=== PATIENT | female | born 1945 | race Caucasian/White ===

== ENCOUNTER 2018-10-23 08:50 | Observation (INO) | payer BC, MEDICARE, OTHER ==
[~2018-10-23] VITALS: Ht 157.5 cm; Wt 82.5 kg
--- OUTSIDE RECORDS SUMMARY | ~2018-10-23 | XMS | Clinical Summary ---
Demographics + + + | Address | [address] | | | [place] [address] | + + + | Home Phone | | + + + | Preferred Language | Unknown | + + + | Marital Status | | + + + | Adventism Affiliation | Unknown | + + + | Race | Unknown | + + + | Ethnic Group | Unknown | + + + Author + + + | Author | [facility] | | | and [place] | + + + | Organization | [facility] | | | and [place] | + + + | Address | Unknown | + + + | Phone | Unavailable | + + + Support + + +---------+ + | Name | Relationship | Address | Phone | + + +---------+ + | Chung Morelos | SAWYER | Unknown | | + + +---------+ + | Jaime Morelos | SAWYER | Unknown | | + + +---------+ + Care Team Providers + +------+ + | Care Rn Clinical Research Name | Role | Phone | + +------+ + | Stan Post DO | PP | | + +------+ + Allergies + + + + + + | Active Allergy | Reactions | Severity | Noted | Comments | | | | | Date | | + + + + + + | Aspirin | Other (See Comments) | Medium | 11/10/19 | Stomach problems | | | | | 18 | with anything higher | | | | | | than 81 mg | + + + + + + | Atorvastatin | Rash | Low | 11/09/19 | | | | | | 18 | | + + + + + + | Lovastatin | Other (See Comments) | Medium | 11/09/19 | Myalgias and | | | | | 18 | Myositis | + + + + + + | Pitavastatin | Other (See Comments) | Medium | 11/09/19 | Myalgias, Myositis | | | | | 18 | | + + + + + + | Simvastatin | Other (See Comments) | Medium | 11/09/19 | Myalgias and | | | | | 18 | Myositis | + + + + + + Medications + + + +---------+------+------+-------+ | Medication | Sig | Dispensed | Refills | Star | End | Statu | | | | | | t | Date | s | | | | | | Date | | | + + + +---------+------+------+-------+ | Procious-3 Fatty | | | 0 | 09/1 | | Activ | | Acids (FISH OIL) | | | | 2/20 | | e | | 1000 MG CAPS | | | | 12 | | | + + + +---------+------+------+-------+ | B Complex-C (SUPER | | | 0 | 09/1 | | Activ | | B COMPLEX) TABS | | | | 2/20 | | e | | | | | | 12 | | | + + + +---------+------+------+-------+ | aspirin (WILLIAM | Take 81 mg by mouth | | 0 | 09/1 | | Activ | | ASPIRIN EC LOW DOSE) | Daily. | | | 2/20 | | e | | 81 MG EC tablet | | | | 12 | | | + + + +---------+------+------+-------+ | Calcium 500 MG | | | 0 | 09/1 | | Activ | | TABS | | | | 2/20 | | e | | | | | | 12 | | | + + + +---------+------+------+-------+ | Coenzyme Q10 (Q-10 | Take 1 tablet by | | 0 | | | Activ | | CO-ENZYME PO) | mouth Daily. | | | | | e | + + + +---------+------+------+-------+ | magnesium oxide | Take 400 mg by mouth | | 0 | | | Activ | | (MAG-OX) 400 mg | Daily. | | | | | e | | tablet | | | | | | | + + + +---------+------+------+-------+ | ondansetron | Take 1 tablet by | 2 | 0 | 05/1 | | Activ | | (ZOFRAN) 4 mg tablet | mouth See Admin | tablet | | 12/13 | | e | | | Instructions. If | | | 18 | | | | | nausea with prep. | | | | | | | | Stop prep, take 1 | | | | | | | | tab by mouth,wait 30 | | | | | | | | min, restart prep | | | | | | | | may repeat | | | | | | + + + +---------+------+------+-------+ | ezetimibe (ZETIA) | Take 10 mg by mouth | | 0 | 05/0 | | Activ | | 10 mg tablet | nightly. | | | 01/12 | | e | | | | | | 18 | | | + + + +---------+------+------+-------+ | Bioflavonoid | Take 1 tablet by | | 0 | | | Activ | | Products (ADELE C | mouth Daily. | | | | | e | | PO) | | | | | | | + + + +---------+------+------+-------+ Active Problems + + + | Problem | Noted Date | + + + | Special screening for malignant neoplasms, colon | 11/09/2017 | + + + | HYPERCHOLESTEROLEMIA | | + + + | OSTEOPENIA | | + + + | SPINAL STENOSIS | | + + + | BACK PAIN, LUMBAR, WITH RADICULOPATHY | | + + + | ARTHROSCOPY, HX OF | | + + + Family History + +------+ + + | Relation | Name | Status | Comments | + +------+ + + | Brother | | Alive | | + +------+ + + | Father | | | cause unknown, possibly obesity | | | | (Age | | | | | 69) | | + +------+ + + | Mother | | Alive | | + +------+ + + | Sister | | | Liver disease, 7 years after liver | | | | (Age | transplant | | | | 52) | | + +------+ + + Social History + + + +--------+ + | Tobacco Use | Types | Packs/Day | Years | Date | | | | | Used | | + + + +--------+ + | Former Smoker | Cigarettes | 0.5 | 25 | Quit: 1994 | + + + +--------+ + + +---+---+---+ | Smokeless Tobacco: | | | | | Never Used | | | | + +---+---+---+ + + +---------+ + | Alcohol Use | Drinks/We | oz/Week | Comments | | | ek | | | + + +---------+ + | Yes | 3 | 1.8 | on the weekends | | | Glasses | | | | | of wine | | | + + +---------+ + + + + | Sex Assigned at | Date Recorded | | | | + + + | Not on file | | + + + + + + + | Job Start Date | Occupation | Industry | + + + + | Not on file | Not on file | Not on file | + + + + + + + + | Travel History | Travel Start | Travel End | + + + + + + | No recent travel history available. | + + Last Filed Vital Signs + + + + | Vital Sign | Reading | Time Taken | + + + + | Blood Pressure | 119/70 | 11/10/20171114 PDT | + + + + | Pulse | 56 | 11/10/20171114 PDT | + + + + | Temperature | 36.4 C (97.5 F) | 11/10/2017846 PDT | + + + + | Respiratory Rate | 15 | 11/10/20171114 PDT | + + + + | Oxygen Saturation | 100% | 11/10/20171114 PDT | + + + + | Inhaled Oxygen | - | - | | Concentration | | | + + + + | Weight | 83.6 kg (184 lb 4.9 | 11/10/2017846 PDT | | | oz) | | + + + + | Height | 157.5 cm (5' 2") | 11/10/2017846 PDT | + + + + | Body Mass Index | 33.71 | 11/10/2017 0847 PDT | + + + + Plan of Treatment + + + + + | Health Maintenance | Due Date | Last Done | Comments | + + + + + | Hepatitis C | | | | | Screening | 5 | | | + + + + + | Vaccine: | | | | | Dtap/Tdap/Td (1 - | 4 | | | | Tdap) | | | | + + + + + | Breast Cancer | | | | | Screening (Ages | 5 | | | | 50-74) | | | | + + + + + | Vaccine: Zoster (1 | | | | | of 2) | 5 | | | + + + + + | Vaccine: | | | | | Pneumococcal 65+ | 0 | | | | Low/Medium Risk (1 | | | | | of 2 - PCV13) | | | | + + + + + | Adult Annual | | | | | Wellness Visit | 5 | | | + + + + + | Vaccine: Influenza | | | | | (Season Ended) | 9 | | | + + + + + | Colorectal Cancer | | 11/10/2017, 11/10/2017 | | | Screening | 1 | | | | (Colonoscopy) | | | | + + + + + Results Not on filefrom Last 3 Months Insurance + +--------+ +--------+ +---------+--------+ | Payer | Benefi | Subscriber | Effect | Phone | Address | Type | | | t Plan | ID | mara | | | | | | / | | Dates | | | | | | Group | | | | | | + +--------+ +--------+ +---------+--------+ | MEDICARE | MEDICA | [id number] | 01/25/20 | [phone] | | Medica | | | RE | | 10-Pre | 5 | | re | | | PART A | | sent | | | | | | AND B | | | | | | + +--------+ +--------+ +---------+--------+ | | CHAMPV | [id number] | [phone] | | Indemn | | | A | | 002-Pr | 7 | | ity | | | | | esent | | | | + +--------+ +--------+ +---------+--------+ | BCBS | BCBS | [id number] | 06/26/19 | | | PPO | | | OOS | 5 | 17-Pre | | | | | | PPO | | sent | | | | + +--------+ +--------+ +---------+--------+ + +--------+ +--------+ + + | Guarantor Name | Accoun | Relation to | Date | Phone | Billing Address | | | t Type | Patient | of | | | | | | | | | | + +--------+ +--------+ + + | Teodoro Morelos | Person | Self [birth year] | [address] | | | al/Nate | | 1945 | [phone] | [place] [address] | | | moon | | | 9 (Home) | | | | | | | [phone] | | | | | | | 9 (Work) | | + +--------+ +--------+ + + Advance Directives Patient has advance care planning documents on file. For more information, please contact:[facility] [place] [address]
--- OUTSIDE RECORDS SUMMARY | ~2018-10-23 | XMS | Clinical Summary ---
Demographics + + + | Address | [address] | | | [place] [address] | + + + | Home Phone | | + + + | Preferred Language | Unknown | + + + | Marital Status | | + + + | Hindu Affiliation | Unknown | + + + | Race | Unknown | + + + | Ethnic Group | Unknown | + + + Author + + + | Author | [facility] | | | and [place] | + + + | Organization | [facility] | | | and [place] | [...] Team Providers + +------+ + | Care As400 Administrator Name | Role | Phone | + [...] | | + + + +---------+------+------+-------+ | [place]-3 Fatty | | | 0 | 09/1 [...] +--------+ +---------+--------+ | MEDICARE | MEDICA | [id number] | 01/25/20 | [phone] | | Medica | | | RE | | 10-Pre | 5 | | re | | | PART A | | sent | | | | | | AND B | | | | | | + +--------+ +--------+ +---------+--------+ | | CHAMPV | [id number] | | [phone] | | Indemn | | | A | | 002-Pr | 7 | | ity | | | | | esent | | | | + +--------+ +--------+ +---------+--------+ | BCBS | BCBS | [id number] | 06/26/19 | | | PPO | [...] 1945 | [phone] | [place] [address] | | | moon | | | 9 (Home) | | | | | | | [phone] | | | | | | | 9 (Work) | | + +--------+ +--------+ + + Advance Directives Patient has advance care planning documents on file. For more information, please contact:[facility] [place] [address]
[~2018-10-23 08:50] MED LIST: ADULT ASPIRIN R81 MG PO; CALCIUM CITRAT250 MG PO; CO Q-10100 MG PO; EZETIMIBE10 MG PO; FISH OIL 1,0001 EAC5 PO; MAGNESIUM400 M1 PO
--- NOTE | 2018-10-23 13:37 | NUR ---
10/23/18 1337 Sheets,[place] 1328 PT ARRIVED TO PACU ON 6L VIA MASK, RESP EVEN AND UNLABORED. SMALL AMOUNT OF SNORING NOTED. 1330 TONE CABINET ASSEMBLER WAKES PT TO TACTILE STIMULI AND DENIES PAIN AND NAUSEA. PT BACK TO SLEEP. 1334 O2 MASK REMOVED.
--- NOTE | 2018-10-23 15:15 | NUR ---
PT RECEIVED TO ROOM AT 1440, BEDSIDE REPORT RECEIVED FROM PATTERN STAMPER. PT DROWSY, AROUSABLE TO VOICE, ORIENTED. PT ON ROOM AIR, LUNG SOUNDS CLEAR, CONTINUOUS PULSE OX IN PLACE. PT DENIES PAIN. BOWEL TONES ACTIVE, DENIES NAUSEA, CLEAR LIQUID DIET. PT WITH MIDLINE INCISION, CD, LLQ WILLAM DRAIN WITH SANGUINOUS FLUID. HAMLIN CATH DRAINING YELLOW URINE. CMS INTACT, WITHOUT EDEMA, SCDS IN PLACE. CALL LIGHT WITHIN REACH.
--- NOTE | 2018-10-23 15:47 | NUR ---
PT RESTING IN BED. PT REPOSITIONED TO RIGHT SIDE. VSS. MIDLINE INCISION DRESSING CDI, WILLAM CONTINUES TO DRAIN SANGUINOUS FLUID. PT CONTINUES TO BE DROWSY, AROUSABLE TO VOICE. PT DENIES OTHER NEEDS AT THIS TIME.
--- NOTE | 2018-10-23 16:52 | NUR ---
PT RESTING IN BED. PT REPORT OF PAIN 11/02, DISCUSSED WITH DR. OKEEFE IBUPROFEN AND TORADOL, VERBAL ORDER FOR OK TO GIVE IBUPROFEN, GIVEN. TELEPHONE ORDER TO MORPHINE 2-4 MG IV Q30MIN PRN FOR PAIN. DISCUSSED WITH PT, PT APPREHENSIVE TO MAKE NARCOTICS THEY MAKE HER SICK TO HER STOMACH. VSS. MIDLINE INCISION CDI. PT PROVIDED JELLO, TOLERATED WELL. PT REPOSITIONED SELF ON LEFT SIDE. PT DENIES OTHER NEEDS AT THIS TIME.
--- NOTE | 2018-10-23 17:45 | NUR ---
VSS. PT ASSISTED TO WALK IN DAVIS, PT STATES PAIN BETTER WHEN OOB. WILLAM DRAIN EMPTIED OF 20 ML OF SANGUINOUS FLUID. MIDLINE DRESSING CDI. PT DENIES NAUSEA, TOLERATED JELLO AND WATER WELL. PT ASSISTED TO BATHROOM. OUTREACH LIAISON TO ASSIST PT BACK TO BED. PT DENIES OTHER NEEDS AT THIS TIME.
--- NOTE | 2018-10-23 18:30 | NUR ---
PT WITH LOW URINE OUTPUT, NOTIFIED, TELEPHONE ORDER TO INCREASE D5LR TO 125 ML/HR. WILL CONTINUE TO MONITOR.
--- NOTE | 2018-10-23 18:31 | NUR ---
PT ADIMITTED FOR SIGMOID COLECTOMY. PT ON ROOM AIR, LUNG SOUNDS CLEAR. PAIN WELL CONTROLLED WITH MOTRIN, TYLENOL AND TORADOL GIVEN IN PACU. BOWEL TONES ACTIVE, DENIES NAUSEA, TOLERATING CLEAR LIQUID DIET. PT SBA TO AMBULATE IN DAVIS. PT WITH MIDLINE INCISION, DRESSING CDI, WILLAM TO LLQ, SANGUINOUS FLUID. SCDS IN PLACE, CMS INTACT. HAMLIN CATH, LOW URINE OUTPUT, IV FLUIDS INCREASED TO 125 ML/HR.
--- NOTE | 2018-10-23 19:00 | NUR ---
SHIFT REPORT RECIEVED AT BEDSIDE. PATIENT APPEARED TO BE SLEEPING BUT WOKE EASILY TO VOICE. TOLERATING ROOM AIR. DENIES PAIN AT REST. NO NAUSEA. IV FLUIDS PER ORDER. PATIENT REQUESTING TO AMBULATE, FREDO RIDDLE IN ROOM TO ASSIST.
--- NOTE | 2018-10-23 19:42 | NUR ---
PATIENT AMBULATED WELL IN THE HALLWAY. PATIENT BACK TO BED WITH CLERICAL INVESTIGATOR ASSIST. ICE PACK APPLIED TO ABD. PRN TYLENOL PROVIDED FOR PAIN 09/02.
--- NOTE | 2018-10-23 20:05 | NUR ---
PATIENT RESTING IN BED, APPEARED TO BE SLEEPING. WOKE EASILY TO VOICE. REPORTS PAIN WELL CONTROLLED, ENJOYS THE ICE PACK. SCHEDULED MEDS PROVIDED. PATIENT DENIES FURTHER NEEDS AT THIS TIME. CALL LIGHT IN REACH.
--- NOTE | 2018-10-23 22:00 | NUR ---
PATIENT RESTING IN BED. REPORTS PAIN WELL CONTROLLED, 2/10. USING ICE PACKS 20MIN AT A TIME AND REPORTS INCREASED RELIEF. LUNGS ARE CLEAR. VS STABLE. NO NAUSEA. ABD MILDLY DISTENDED, TENDER, BOWEL SOUNDS ACTIVE. NOT PASSING GAS OF NOW. IV FLUIDS PER ORDER, URINE OUTPUT SLIGHTLY IMPROVED, 200ML FOR LAST 4 HOURS. PATIENT DRINKING LARGE AMOUNTS OF FLUIDS. MIDLINE SITE COVERED WITH MEPILEX AND OBSITE, CDI. WILLAM LLQ, MINIMAL OUTPUT NOT YET DRAINED. PATIENT DENIES FURTHER NEEDS. CALL LIGHT IN REACH.
--- NOTE | 2018-10-23 23:03 | NUR ---
PATIENT WOKE AND ALERTED NURSE TO HER PAIN "ACTING UP". REPORTS ABD PAIN 5/10. PRN MOTRIN PROVIDED PER REQUEST. ICE PACKS APPLIED. PATIENT DENIES FURTHER NEEDS. CALL LIGHT IN REACH.
--- NOTE | 2018-10-24 01:30 | NUR ---
PATIENT VS DONE, WNL. URINE OUTPUT HAS IMPROVED. PATIENT REPORTS PAIN 3/10, PRN TYLENOL PROVIDED PER REQUEST. FRESH ICE PACKS APPLIED. PATIENT DENIES FURTHER NEEDS. DRESS CDI. NO NAUSEA. WILLAM EMPTIED FOR 10MLS.
--- NOTE | 2018-10-24 05:45 | NUR ---
PATIENT PROVIDED WITH PRN MOTRIN THIS AM. PAIN WELL CONTROLLED. PATIENT UP TO AMBULATE LARGE LAP IN HALLWAY. STEADY ON HER FEET. PATIENT RETURNED TO RECLINER TO WATCH TV. ICE WATER AND JUICE PROVIDED.
--- NOTE | 2018-10-24 06:30 | NUR ---
PATIENT SLEPT WELL. VS STABLE. PAIN WELL CONTROLLED WITH PRN TYLENOL AND MOTRIN. TOLERATING CLEAR LIQUIDS, NO NAUSEA. ABD MILDLY DISTENDED AND TENDER. BOWEL SOUNDS ACTIVE. URINE OUTPUT QS, HAMLIN IN PLACE. IV FLUIDS PER ORDER. SCDS. SBA. PATIENT AMBULATED IN HALLWAY X2 THIS SHIFT. WILLAM HAD 18ML OUT THIS SHIFT.
--- NOTE | 2018-10-24 06:34 | NUR ---
PT CALLED NEEDED HELP. FOUND PT IN THE BATHROOM, THOUGHT SHE HAD JUST GAS, BUT WAS INCONT OF VERY SMALL LIQUID STOOL. ASSISTED IN CLEANING HER UP, BACK TO BED. FRESH ICE PACKS AND SPLINTING SUPPORT FOR INCISION SITE. NO NAUSEA, STATED SHE HAD JUST HAD SOMETHING FOR PAIN, AND ONCE SHE IS DONE MOVING, SHE SAID PAIN WILL DECREASE. CALL LIGHT WITHIN REACH. NO OTHER NEEDS AT THIS TIME.
--- NOTE | 2018-10-24 07:23 | NUR ---
BEDSIDE HANDOFF REPORT RECEIVED FROM SUPERINTENDENT RADIO COMMUNICATIONS RN. PT RESTING IN BED. PT DENIES NEEDS AT THIS TIME.
--- NOTE | 2018-10-24 08:20 | NUR ---
PT WITH GOOD URINE OUTPUT, HAMLIN IN PLACE, NO ORDER FOR HAMLIN. DR. OKEEFE CALLED, ORDER TO DECREASE FLUIDS TO 85 ML/HR, LEAVE HAMLIN IN PLACE UNTIL ORDER TO REMOVE, RBOV.
--- NOTE | 2018-10-24 08:30 | NUR ---
PT RESTING IN BED. PT RATING PAIN TOLERABLE, 4/10 AT THIS TIME. PT ON ROOM AIR, LUNG SOUNDS CLEAR, DENIES SOB. PT WITH MIDLINE INCISION, CDI, WILLAM WITH MINIMAL SEROSANGUINOUS FLUID. BOWEL TONES ACTIVE, TOLERATING CLEAR LIQUID, DENIES NAUSEA. PT WIHTOUE EDEMA, CMS INTACT, SCDS IN PLACE. IV FLUIDS DECREASED TO 85 ML/HR. HAMLIN DRAININGE YELLOW URINE, QS. PT ASSITED TO CHAIR. PT VERY MOTIVATED, WANTING TO WLAK THROUGHOUT DAY. DISCUSSED PLAN OF CARE FOR THE DAY.
--- NOTE | 2018-10-24 09:25 | NUR ---
MED REC COMPLETE
--- NOTE | 2018-10-24 11:32 | NUR ---
PT SITTING IN CHAIR. PT RATING PAIN 2-3/10, STATES TOLERABLE. PT GIVEN 650 MG TYLENOL PO. PT ASSSITED TO BATHROOM, DAVID CORREIA BM. PT DENIES OTHER NEEDS AT THIS TIME.
--- NOTE | 2018-10-24 12:09 | OR ---
[facility] [address], [place] [address] Signed DATE OF OPERATION: 10/23/2018 SURGEON: Kemar Okeefe MD PREOPERATIVE DIAGNOSES: 1. Chronic recurrent sigmoid diverticulitis. 2. Obesity. 3. History of hysterectomy. POSTOPERATIVE DIAGNOSES: 1. Chronic recurrent sigmoid diverticulitis. 2. Cystic abnormality of remnant of right adnexa. 3. Advanced visceral obesity PROCEDURES PERFORMED: 1. Exploration of abdomen through pelvic laparotomy with sigmoid colectomy and side-to-end coloproctostomy, prolonged, complicated, and difficult. 2. Mobilization of splenic flexure. 3. Excision of cystic lesion of right adnexal remnant including portion of ovary and right salpinx. ANESTHESIA: General endotracheal, Erma Anderson CRNA, and preoperative TAP block (ultrasound guided). INDICATION: A 73-year-old white woman is a patient of Dr. Seo, who has had chronic recurrent bouts of sigmoid diverticulitis. She was last seen by me 14 years ago in 2004. She has since undergone colonoscopy in [place] [address] Holcomb, which showed no mass or neoplasm, but did confirm diverticular changes. In April of 2018, she had a very serious episode of left lower abdominal pain requiring antibiotics. She notes that certain foods do seem to cause problems for her. Currently she is rather symptom-free. She has had multiple episodes of clinical diverticulitis for which antibiotic therapy has been reasonably beneficial. Given her chronic recurrent symptoms, she has been referred for consideration of colectomy. Additionally, she has history of hysterectomy for benign disease and is postmenopausal. 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 She understands the risk of sigmoid resection including but not limited to bleeding, infection, ureteral injury, failure to cure her recurrent symptoms, and other unforeseen complications. She understands and she wishes to proceed. Electronically Signed By: KEMAR OKEEFE MD 10/24/18 1209 PATIENT NAME: SELINA LINTON OPERATIVE REPORT DATE OF : 45 REPORT #: [id number] PHYSICIAN: KEMAR OKEEFE MD PCP: GONZALEZ SEO MD REPORT IS CONFIDENTIAL AND NOT TO BE RELEASED WITHOUT AUTHORIZATION [facility] [address], [place] [address] Signed FINDINGS: The patient has baseline abdominal obesity. She had impressive fat in the mesentery of the sigmoid and a tortuous sigmoid with a dense inflammatory process within that mesentery, presumably related to diverticular changes. She had no sign of acute diverticulitis, only chronic changes. The rectum itself was normal. Bowel prep was excellent. A tension-free side-to-end coloproctostomy was performed after mobilization of splenic flexure. Additionally noted was a remnant of cystic change in the right adnexa associated with the remnant of the fallopian tube and small portion of ovary. This was excised as well. It did not have a malignant appearance. There was surgical absence of the gallbladder. The small bowel was normal. There were no other findings of concern. DESCRIPTION OF PROCEDURE: The patient was brought to the operating room, given a general endotracheal anesthetic. Prior to operating room intervention, she underwent a TAP block by the secretary of police for postoperative and intraoperative pain management. A Hinkle catheter was placed after general endotracheal anesthesia was induced. She had undergone a full bowel prep including oral antibiotics and IV antibiotics. The abdomen was clipped and prepared with a chlorhexidine solution and draped sterilely. Despite her abdominal obesity, minimization of her incision was deemed appropriate. An incision was made below the umbilicus extending to the symphysis pubis. She had thick abdominal wall pannus. The abdomen was entered without problem. A very thick omentum was noted. There was no sign of ascites or carcinomatosis. Palpation within the abdomen showed no sign of small bowel abnormality. The colon was obscured from view by an impressively large amount of sigmoid mesenteric fat. Actual course of the colon was not readily identified initially. A Bookwalter retractor was affixed to the table for good retraction of the abdominal wall. The omentum was placed in the upper abdomen and the white line of Toldt identified and incised with electrocautery. Using blunt dissection, the descending colon was identified, a few small diverticula were noted in the descending colon. Palpated within this amorphous central lower abdominal and pelvic fat plane was a dense cicatrix of chronic inflammation. With various manipulations, further dissection was undertaken this time to the right pelvis. It appeared that the sigmoid was extended to the right lower abdomen. In attempts of mobilizing the fatty mesentery of the sigmoid, prior suture material was encountered from prior hysterectomy. Ultimately found also was a remnant of ovary and minimal atretic salpinx and ovary, and a cystic abnormality. This was dissected free and ultimately excised and passed for pathology. This allowed for more freeing of the tortuous sigmoid near the right pelvis. Further dissection anteriorly was undertaken, retraction against the bladder undertaken, Electronically Signed By: KEMAR OKEEFE MD 10/24/18 1209 PATIENT NAME: SELINA LINTON OPERATIVE REPORT DATE OF : 45 REPORT #: [id number] PHYSICIAN: KEMAR OKEEFE MD PCP: GONZALEZ SEO MD REPORT IS CONFIDENTIAL AND NOT TO BE RELEASED WITHOUT AUTHORIZATION [facility] [address] [facility] [place], [place] [address] Signed and ultimately the low pelvis could be better identified. The fat that was associated with the sigmoid mesentery was impressive, more than I have ever seen, really. The dense phlegmonous change considered in the midportion of the sigmoid was likely a manifestation of recurrent sigmoid diverticulitis. Further dissection was undertaken on the left side, mobilizing the sigmoid mesentery to the midline. Mobilization of the left colon was undertaken incising the white line of Toldt and using blunt dissection carefully to separate the mesentery from the retroperitoneum. Ultimately, an area of transection of the distal descending colon was identified. A window was created between the thickened mesentery of the sigmoid and the descending colon and a Sachin drain looped around this area. Sequential division of the sigmoid mesentery with electrocautery was undertaken and serial application of hemostats to the mesenteric fatty tissue undertaken. Ligation of the vascular pedicles was undertaken with 0 silk ties doubly applied on the proximal side of the vascular arcades. A 50 mm ALEXX stapling device was used to transect the colon for further dissection. Further mobility of the very thickened sigmoid and rectal mesentery was undertaken with electrocautery rotating the distal sigmoid and proximal rectum anteriorly. Circumferential application of electrocautery allowed for identification of the rectal wall. The rectum itself was surprisingly narrow given her body habitus. Once completely isolated, it was then secured with a right angle bronchus clamp and then resected. Specimen included the dense phlegmonous mass in the mesentery as well as all of the sigmoid and some of the proximal rectum. The pelvis and abdomen were isolated with moistened laparotomy packs. The specimen was opened on the back table, inspected, and found to have diverticular changes, no sign of neoplasm. Plans were then made for a side-to-end coloproctostomy. The remaining left colon did generally reach to the rectal remnant, but further mobilization of the splenic flexur was deemed advisable to provide a completely tension free anastomosis. This was accomplished with blunt electrocautery dissection ultimately allowing for the colon to lie without tension to the proposed site of anastomosis in the rectum. A side-to-end coloproctostomy was then undertaken in a two-layer technique with interrupted 3-0 silk suture. Good patency to the anastomosis and lack of tension of the anastomosis was noted. It appeared to be watertight. Through a left lower quadrant stab incision, a 7 mm flat Tony drain was placed after removal of isolating laparotomy Electronically Signed By: KEMAR OKEEFE MD 10/24/18 1209 PATIENT NAME: SELINA LINTON OPERATIVE REPORT DATE OF : 45 REPORT #: [id number] PHYSICIAN: KEMAR OKEEFE MD PCP: GONZALEZ SEO MD REPORT IS CONFIDENTIAL AND NOT TO BE RELEASED WITHOUT AUTHORIZATION [address] [address] Signed packs and change of gloves for all personnel scrubbed. The drain was secured to the skin with nylon suture and manipulated into the pelvis. Attention was turned toward closure. The midline fascia was reapproximated with running bidirectional #1 PDS suture. Subcutaneous tissue irrigated and skin closed with running subcuticular 3-0 Vicryl. Steri-Strips were applied as was a Mepilex silver sponge dressing and an OpSite. The patient was ultimately extubated and transferred to recovery in good condition and suffered no complication. Sponge, needle, and instrument counts reported as correct x3. The procedure was prolonged, complicated, and difficult lasting at least three times longer than usual mostly due to body habitus and impressive abdominal fat. MD SCOTT Beltrán/MODL /[id number] cc: Gonzalez Seo MD Copies: GONZALEZ SEO MD ~ Electronically Signed By: KEMAR OKEEFE MD 10/24/18 1209 PATIENT NAME: SELINA LINTON OPERATIVE REPORT DATE OF : 45 REPORT #: [id number] PHYSICIAN: KEMAR OKEEFE MD PCP: GONZALEZ SEO MD REPORT IS CONFIDENTIAL AND NOT TO BE RELEASED WITHOUT AUTHORIZATION
--- NOTE | 2018-10-24 12:27 | NUR ---
PT SITTING IN CHAIR, WRAPPED UP IN BLANKET. SHE IS ALERT, ORIENTED AND SEEMS TO BE DOING WELL. PT STATED SHE HAS NO PAIN, AND HOPES TO BE DC'D TOMORROW. HAD PLEASANT VISIT, VISITOR CAME IN RM. EXTENDED A BLESSINMG, WILL FOLLOW NEEDED
--- NOTE | 2018-10-24 12:53 | NUR ---
PT ASSSITED TO WALK IN [place], COMPLETED 2 LAPS AROUND NURSING FLOOR. PT DENIES NAUSEA, BOWEL TONES ACTIVE, ADVANCED TO FULL LIQUID DIET, ORDERED A MILK SHAKE. PT ON ROOM AIR. NO ACUTE CHANGES. PT ASSIEDT BACK TO BED, SCDS IN PLACE. CALL LIGHT WITHIN REACH. PT REQUESTING TO NAP.
--- NOTE | 2018-10-24 14:04 | NUR ---
PT RESTIGN IN BED. PT RATING PAIN 1/10, GIVEN PRN MOTRIN, DISCUSSED ANTI-INFLAMMATORY USE OF MOTRIN. PT HAD SMALL BM. PT DENIESOTHER NEEDS. PLAN FOR ANOTHER WALK THIS AFTERNOON.
--- NOTE | 2018-10-24 14:46 | NUR ---
CHECKED BACKED WITH PT, SHE IS ALERT, ORIENTED AND PAIN IS 0. PT SEEMED PLEASED I CHECKED BACK BY, EXPLAINED TO ME HER SURGERY IN HER TERMS AND WAS ABLE TO POKE FUN AT HERSELF.PT HAD ME PRAY WITH HER, WILL FOLLOW NEEDED
--- NOTE | 2018-10-24 16:55 | NUR ---
PT RESTING IN BED. PT STATES PAIN TOLERABLE. PT EATING FULL LIQUID DIET. PT DENIES NEEDS AT THIS TIME.
--- NOTE | 2018-10-24 18:12 | NUR ---
PT ON ROOM AIR, LUNG SOUNDS CLEAR. IV FLUIDS DECREASED TO 85 ML/HR. PAIN WELL CONTROLLED WITH ALTERNATING MOTRIN AND TYLENOL. PT ADVANCED TO FULL LIQUID DIET, TOLERATING WELL, BOWEL TONES ACTIVE, SEVERAL LOOSE BM TODAY. PT WITH WILLAM WADDELL, 18ML OF SEROSANGUINOUS FLUID FOR SHIFT. PT UP WITH SBA/INDEPENDENT IN ROOM. HAMLIN CATH DRAINING QS, ORDER TO DC HAMLIN IN AM.
--- NOTE | 2018-10-24 18:31 | NUR ---
PT RETURNED TO BED FROM BATHROOM, HAD SMALL LOOSE BM. VSS. HAMLIN CATH EMPTIED. WILLAM EMPTIED FOR 18ML SEROSANGUINOUS FLUID. PT STATES PAIN TOLERABLE AT THIS TIME, RATING 2/10. PT TOELRATED FULL LIQUID DINNER. PT DENIES OTHER NEEDS AT THIS TIME.
--- NOTE | 2018-10-24 21:03 | NUR ---
COOP WITH ASSESSMENT. ALERT AND ORIENTED, IN BED WATCHING TV. ABD MIDLINE INCISION WITH MEPILEX AnD IOSITE IN PLACE, HEA, HAD SEVERAL BMS THIS AM. WILLAM WITH SS DRAINAGE 5CC DRAINED, PATENT. F/C PATENT, DRAINING CLEAR URINE. NO N/V. IVF INFUSING W/O PROBLEMS. SCDS OFF AT HER REQUEST
--- NOTE | 2018-10-24 22:39 | NUR ---
RESTING, NO DISTRESS, NO C/O PAIN
--- NOTE | 2018-10-25 00:24 | NUR ---
resting, no distress, no c/o pain, ivf infusing, f/c patent
--- NOTE | 2018-10-25 01:31 | NUR ---
medicated with tylenol 650mg po 4/10 abd pain.
--- NOTE | 2018-10-25 05:59 | NUR ---
CURRENTLY AWAKE, STANDING EDGE OF BED, WALKING INROOM. NO C/O PAIN. ABD INCISION W MEPELIX/OPSITE DRESSING IN PLACE, WILLAM W MINIMUM OF SS DRAINAGE. F/C DCD. TIP INTACT. TOLERATING FLUIDS WELL, CALL LIGHT AT HANDS REACH
--- NOTE | 2018-10-25 07:00 | NUR ---
BEDSIDE HANDOFF REPORT RECEIVDE FROM FILLER BLOCK INSERTER REMOVER RN. PT RESTING IN BED. PT REPORT OF BLOOD TINGINGED STOOL AND BLOOD WITH WIPING, STOOL ASSESSED, LOOSE STOOL PINKISH ORANGE. PT INSTRUCTED TO NOTIFY RN IF BLOOD CONTINUES. PT DENIES OTHER NEEDS AT THIS TIME.
--- NOTE | 2018-10-25 07:30 | NUR ---
PT CALLED BECAUSE SHE WENT TO THE BATHROOM AND NEEDED TO BE BLADDER SCANNED. TRIED TO SCAN AND COULDNT DUE TO HER DRESSING. TRIED AT MULTIPLE ANGLES. PATIENT BACK IN BED AND CALL LIGHT IN REACH.
--- NOTE | 2018-10-25 07:50 | NUR ---
PATIENT RESTING IN BED. PATIENT GOES TO WALK IN THE DAVIS. PATIENT WALKS ARROUND THE NURSING STATION 3 LAPS. ONE PERSON ASSISTING. PATIENT BACKS TO CHAIR. LINENS CHANGED. HANDS AND FACE CLEANED. WARM BLANKET PROVIDED. CALL LIGHT WITHIN REACH. NO OTHER NEEDS AT THIS TIME
--- NOTE | 2018-10-25 09:40 | NUR ---
PT RESTINGI N BED. PT STATES PAIN TOLERABLE AT THIS TIME, GIVEN 600 MG MORTIN. PT TOLERATING FULL LIQUID DIET, BOWEL TONES HYPERACTIVE, RECTUM ASSESSED FROM SIGNS OF BLEEDING OR IRRITATION, SKIN INTACT WITHOUT REDNESS. PT ON ROOM AIR, LUNG SOUNDS CLEAR. PT SBA TO BATHROOM, VOIDING QS WITHOUT DIFFICULTY. PT WITHOUT EDEMA, CMS INTACT. MIDLINE INCISION WITH SHADOWING TO LOWER DRESSING, WILLAM DRAIN IN PLACE TO LLQ WITH SEROSANGUINOUS FLUID. PT WALKING IN DAVIS, REPORT OF WALKING 4 LAPS WITHNURSE AIDE THIS AM, PT REQUEST TO WALK AGAIN THIS MORNING. DISCUSSED PLAN OF CARE FOR THE DAY. PT DENIES OTHER NEEDS AT THIS TIME.
--- NOTE | 2018-10-25 09:47 | NUR ---
PATIENT RESTING IN BED. VITAL SIGNS AND I&O DONE. ICE WATER GIVEN. CALL LIGHT WITHIN REACH. NO OTHER NEEDS AT THIS TIME
--- NOTE | 2018-10-25 11:19 | NUR ---
PATIENT IN BED. PATIENT GOES TO USE BATHROOM. PATIENT WALKS AROUND NURSING STATION 4 LAPS. ONE PERSON ASSISTING. PATIENT BACKS TO BED. CALL LIGHT WITHIN RECH. NO OTHER NEEDS AT THIS TIME
--- NOTE | 2018-10-25 11:32 | NUR ---
DR. OKEEFE NOTIFIED OF BLOOD TINGED STOOL THIS AM, NO NEW ORDERS, WILL CONTINUE TO MONITOR. TELEPHONE ORDER TO ADVANCE TO REGULAR DIET. PT ASSITED TO ORDER LUNCH. PT DENIES OTHER NEEDS AT THIS TIME.
--- NOTE | 2018-10-25 13:01 | NUR ---
PT HAD BEEN RESTING, VISITORS HAD DROPPED BY PT HAD HOPED TO DC TODAY, BUT STATED SHE HAS A FEELING IT WILL BE TOMORROW. SHE THANKED ME FOR COMING BY, EXTENDED A BLESSING. WILL FOLLOW NEEDED
--- NOTE | 2018-10-25 13:26 | NUR ---
Pt ambulated in the jacobsen with a SBA, she was steady on her feet and walked 3 laps. Pt helped back to bed and SCD's were repaced. Call carpenter within reach and she is now visiting with her family.
--- NOTE | 2018-10-25 13:54 | NUR ---
PATIENT RESTING IN BED. IN ROOM. VITAL SIGNS AND I&O DONE. CALL LIGHT WITHIN REACH. NO OTHER NEEDS AT THIS TIME
--- NOTE | 2018-10-25 15:54 | NUR ---
PT RESTING IN BED. PT STATES PAIN TOLERABLE. IV FLUIDS DISCONTINUED PER VERBAL ORDER. PT INSTRUCTED SHE MAY AMBULATE INDEPENDENTLY, EDUCATED ON FALL PREVENTION. WILLAM DRAIN EMPTIED FRO 10 ML OF SEROSANGUINOUS FLUID. LUNG SOUNDS CLEAR, PT ON ROOM AIR. BOWEL TONES ACTIVE, DENIES NAUSEA, TOLERATING REGULAR DIET. MIDLINE INCISION CDI. PT ASKING ABOUT DISCHAREG TIME TOMORROW, DISCUSSED WITH PT. PT DENIES OTHER NEEDS. PT WALKING IN DAVIS.
--- NOTE | 2018-10-25 17:36 | NUR ---
PATIENT RESTING IN BED. VITAL SIGNS AND I&O DONE. CALL LIGHT WITHIN REACH. NO OTHER NEEDS AT THIS TIME
--- NOTE | 2018-10-25 19:11 | NUR ---
RECIEVED REPORT FROM DAY SHIFT RN. PATIENT LAYING AWAKE IN BED WATCHING TV. PATIENT REPORTS PAIN IS "VERY LOW" A "1/10", PATIENT DENIES WANTING PRN PAIN MEDICATION AT THIS TIME. CALL LIGHT WITHIN REACH. WHITE BOARD UPDATED.
--- NOTE | 2018-10-25 19:46 | NUR ---
PT IS AMBULATING IN THE HALLS AT THIS TIME INDEPENDENTLY.
--- NOTE | 2018-10-25 20:40 | NUR ---
ASSESSMENT COMPLETE, REFER TO ASSESSMENT. MEDICATIONS ADMINISTERED PER ORDER. IV ASSESSED, PATIENT REPORTS PAIN AT IV SITE, IV SITE INFILTRATED, UNABLE TO ADMINISTER SCHEDULED IV PEPCID AT THIS TIME. DRESSING ON ABD IS CDI, NO NEW DRAINAGE NOTED, SLIGHT DRY SHADOWING NOTED TO LOWER DRESSING SITE. PATIENT REPORTS "2/10" PAIN IN ABD, PRN PAIN MEDICATION ADMINISTERED PER ORDER. PATIENT AMBULATED IN HALLWAY INDEPENDENTLY BEFORE ASSESSMENT. SANGUINOUS DRAINAGE NOTED IN WILLAM DRAIN. PATIENT DENIES HAVING CHEST PAIN, SHORTNESS OF BREATH, OR DIFFICULTY BREATHING. ABD ASSESSED, ACTIVE BOWEL TONES PRESENT. PATIENT DENIES NUMBNESS AND TINGING IN EXTREMITIES. CALL LIGHT WITHIN REACH. NO MORE NEEDS AT THIS TIME.
--- NOTE | 2018-10-25 21:00 | NUR ---
NOTIFIED DR. OKEEFE OF PATIENT REPORTING DISCOMFORT AT IV SITE. DR. OKEEFE STATED OK TO TAKE IV OUT AND TO LEAVE OUT. DR. OKEEFE ALSO STATED TO CHANGE "IV PEPCID 20 MG" TO "PO PEPCID 20 MG". VERIFIED ORDERS VIA READ BACK METHOD.
--- NOTE | 2018-10-25 21:38 | NUR ---
ROUNDED ON PATIENT LAYING AWAKE IN BED WATCHING TV. DRESSING ON ABD AND AROUND WILLAM DRAIN REMOVED PER ORDER. SMALL AMOUNT OF SEROSANGUANOUS DRAINAGE NOTED AROUND WILLAM SITE AND SMALL AMOUNT OF DRY RED DRAINAGE NOTED ALONG MIDLINE INCISION SITE. NEW DRESSING PLACED AROUND WILLAM DRAIN, USING DRAIN SPONGE AND FOAM TAPE. WILLAM DRAIN EMPTIED, DRAINING SEROSANGUANOUS DRAINAGE. MEDICATION ADMINISTERED PER ORDER. IV REMOVED PER DR. OKEEFE ORDER, CATHETER INTACT, PATIENT TOLERATED WELL, GUAZE AND COBAN IN PLACE. CALL LIGHT WITHIN REACH. NO MORE NEEDS AT THIS TIME.
--- NOTE | 2018-10-25 21:40 | NUR ---
vitals and I&Os were complete. patient requested juice and used the restroom while i was gone. Call light within reach and BST was nearby.
--- NOTE | 2018-10-25 22:44 | NUR ---
rounded on patient resting in bed with eyes closed laying on right side, respiratory rate is even and unlabored. no sign of tensing or grimacing. call light within reach.
--- NOTE | 2018-10-26 01:18 | NUR ---
ROUNDED ON PATIENT RESTING IN BED WITH EYES CLOSED, RESPIRATORY RATE IS EVEN AND UNLABORED. CALL LIGHT WITHIN REACH.
--- NOTE | 2018-10-26 04:08 | NUR ---
ROUNDED ON PATIENT RESTING IN BED WITH EYES CLOSED, RESPIRATORY RATE IS EVEN AND UNLABORED. NO SIGNS OF TENSING OR GRIMACING. CALL LIGHT WITHIN REACH.
--- NOTE | 2018-10-26 04:46 | NUR ---
PT SLEPT WELL THROUGHOUT THE NIGHT. IV REMOVED DUE TO INFILTRATION, OK TO LEAVE IV OUT PER DR. OKEEFE ORDER. DRESSING ON ABD REMOVED PER ORDER, SMALL-MODERATE AMOUNT OF DRY DRAINAGE NOTED ON STERISTRIPS OF MIDLINE INCISION. DRESSING PLACED AROUND WILLAM DRAIN WITH DRAIN SPONGE AND FOAM TAPE DUE TO SMALL AMOUNT OF SEROSANGUINOUS DRAINAGE NOTED AROUND WILLAM INSERTION SITE. WILLAM DRAIN DRAINING SEROSANGUINOUS DRAINAGE. INCISION SITE SHOWES NO SIGN OF REDDNESS OR IRRITATION. PT WALKED SEVERAL LAPS IN HALLWAY AT BEGINNING OF SHIFT. INDEPENDENT IN ROOM. ON ROOM AIR. PRN PAIN MEDICATION X1. ACTIVE BOWEL TONES PRESENT.
--- NOTE | 2018-10-26 06:05 | NUR ---
ASSESSMENT COMPLETE, REFER TO ASSESSMENT. PATIENT DENIES PAIN, SHORTNESS OF BREATH OR DIFFCULTY BREATHING. PATIENT DENIES ABD TENDERNESS, ACTIVE BT NOTED, PATIENT REPORTS PASSING FLATUS. SCANT AMOUNT OF SANGUINOUS DRAINAGE NOTED ON MIDLINE INCISION WITH STERI-STRIPS INTACT. DRESSING ON WILLAM DRAINAGE REMOVED A PORTION OF DRESSING HAD LIFTED UP, SMALL AMOUNT OF SEROSANGUINOUS DRAINAGE NOTED AROUND WILLAM INSERTION SITE, NEW DRESSING PLACED WITH DRAIN SPONGE AND FOAM TAPE. PATIENT DENIES NUMBNESS AND TINGLING IN EXTREMITIES. CALL LIGHT WITHIN REACH. NO MORE NEEDS AT THIS TIME.
--- NOTE | 2018-10-26 07:30 | NUR ---
PATIENT REPORT RECEIVED FROM DANIAL DARNELL, PATIENT HAS BEEN UP AMBULATING INDEPENDENTLY IN THE HALLWAY, SHE HAS A MIDLINE ABDOMINAL INCISION THAT IS INTACT WITH STERI STRIPS. PATIENT DENIES ANY QUESTIONS OR CONCERNS CURRENTLY.
--- NOTE | 2018-10-26 09:11 | NUR ---
PATIENT REQUESTING TYLENOL PO NOW FOR MILD PAIN 1/10 IN HER ABDOMEN DUE TO AMBULATION. MIDLINE INCISION IS STILL INTACT WITH STERI STRIPS OLD DRAINAGE NOTED. WILLAM HAS SERO SANG DRAINAGE PRESENT.
[2018-10-26] MEDS ORDERED: OFIRMEV1000 MG/10 IV (09:43)
[2018-10-26] MEDS ORDERED: IBUPROFEN600 MG PO (09:43)
[2018-10-26] MEDS ORDERED: TYLENOL325 MG PO (09:50)
--- NOTE | 2018-10-26 10:13 | NUR ---
DOCTOR MALDONADO IN TO SEE THE PATIENT, PATIENT GIVEN D/C INSTRUCTIONS QUESTIONS ANSWERED.
--- NOTE | 2018-10-28 14:06 | DS ---
[facility] [address], [place] [address] Signed ADMISSION DATE: 10/23/2018 DISCHARGE DATE: 10/26/2018 REASON FOR ADMISSION: This 73-year-old white woman is a patient of Dr. Seo, who has had chronic recurrent bouts of sigmoid diverticulitis. She had undergone colonoscopy in [place] [address] Douglas Holcomb, which showed no mass or neoplasm, but did confirm diverticular changes. In April of 2018, she had a very serious episode of left lower abdominal pain requiring antibiotics consistent with acute diverticulitis. She has chronic recurrent diverticulitis episodes and is admitted at this time to undergo sigmoid resection for intractability of her diverticular problem. PERTINENT PHYSICAL EXAM: GENERAL: This is an obese white woman with normal heart rate. CHEST: Clear. ABDOMEN: Quite obese. EXTREMITIES: Without clubbing, cyanosis, or edema. HOSPITAL COURSE: On October 23, 2018, she underwent sigmoid resection through a pelvic laparotomy. A side-to-end coloproctostomy was undertaken. She had impressive mesenteric fat and a dense chronic phlegmon of the sigmoid mesentery. Mobilization of splenic flexure was undertaken as well. Additionally noted was a cystic lesion of the right adnexal remnant, which was excised as well. A tap block (ultrasound-guided) was performed preoperatively and an ERAS approach was undertaken in hopes of avoiding opiates and expediting her recovery. Postoperatively, she was maintained with IV Toradol, IV Tylenol, and though opiate intravenously administered was available, was never required. She was began on clear liquids the night of operation, early ambulation, and progressed quite rapidly. Bowel function returned on postoperative day 1, and by postoperative day 3, she has tolerated regular diet, had normal bowel movements, minimal incisional pain, and has taken no opiates during the course of her hospitalization. She is discharged home in good condition. Review of her pathology report confirms diverticular change of the sigmoid and a dense inflammatory phlegmon of the sigmoid mesentery. There was no evidence of malignancy. The ovarian remnant, salpinx, and so forth showed no sign of malignancy either. FOLLOWUP PLAN: Electronically Signed By: KEMAR OKEEFE MD 10/28/18 1406 PATIENT NAME: SELINA LINTON DISCHARGE SUMMARY DATE OF : 45 REPORT #: [id number] PHYSICIAN: KEMAR OKEEFE MD PCP: GONZALEZ SEO MD REPORT IS CONFIDENTIAL AND NOT TO BE RELEASED WITHOUT AUTHORIZATION [facility] [address], [place] [address] Signed She is to return to see me in approximately a month. She is to lift no more than 20 pounds for at least 4 weeks. She is instructed to ambulate on a daily basis. DISCHARGE MEDICATIONS: Will include Motrin 600 mg p.o. q.6 hours p.r.n. needed for pain, #30, refill one; Tylenol 650 mg p.o. q.6 hours p.r.n. pain. She will resume her usual medication of magnesium oxide 400 mg p.o. daily; calcium citrate tablets, 1 tablet p.o. b.i.d.; aspirin 81 mg p.o. daily; CoQ10 400 mg p.o. daily; and [place]-3 fish oil 1 tablet p.o. daily. DISCHARGE DIAGNOSES: 1. Chronic recurrent acute diverticulitis, status post sigmoid resection with coloproctostomy. 2. Incidental finding of cystic abnormality of right adnexa cyst, status post excision. Final pathology is benign. 3. Obesity. MD SCOTT Beltrán/MODL /[id number] cc: MD Douglas Espinoza MD Copies: GONZALEZ SEO MD, JAMES MD ~ Electronically Signed By: KEMAR OKEEFE MD 10/28/18 1406 PATIENT NAME: SELINA LINTON DISCHARGE SUMMARY DATE OF : 45 REPORT #: [id number] PHYSICIAN: KEMAR OKEEFE MD PCP: GONZALEZ SEO MD REPORT IS CONFIDENTIAL AND NOT TO BE RELEASED WITHOUT AUTHORIZATION
== END 2018-10-26 11:06 | disposition home or self-care (01) ==
LOC: DSVR 08:50 → DS 08:50 → MS 08:50 → EDSTATUS 09:30 → MS 09:30 → DSVR 14:32 → MS 14:32
PROVIDERS: ADMIT Surgery
PROC: 0DBN0ZZ Excision of Sigmoid Colon, Open Approach (ICD-10-PCS; 2018-10-23)
PROC: 0UB50ZZ Excision of Right Fallopian Tube, Open Approach (ICD-10-PCS; 2018-10-23)
PROC: 0UB00ZZ Excision of Right Ovary, Open Approach (ICD-10-PCS; principal; 2018-10-23 09:30)
DX: K57.20 Diverticulitis of large intestine with perforation and abscess without bleeding (principal); N83.8 Other noninflammatory disorders of ovary, fallopian tube and broad ligament; E66.9 Obesity, unspecified; Z79.82 Long term (current) use of aspirin; Z79.899 Other long term (current) drug therapy; Z68.32 Body mass index [BMI] 32.0-32.9, adult
CPT/HCPCS: 00790; 36415; 64488; 76942; 80053; 85025; 96361; 96372; 96374; 96375; 96376; G0378; J0131; J0330; J0694; J1100; J1644; J1885; J2250; J2370; J2405; J2704; J2795; J3010; J7060; J7120

== ENCOUNTER 2024-12-10 10:36 | Day surgery (SDC) | payer MEDICARE, OTHER ==
[~2024-12-10] VITALS: Ht 157.5 cm; Wt 80.5 kg
[~2024-12-10 10:36] MED LIST changes: +GABAPENTIN300 MG PO; +IBLOOD GLUCOSE TEST STRIP 1 EA TEST VI PRN; +IBUPROFEN600 MG PO; +LACTATED RINGER'S 1,000 ML IV SCH; +LIDOCAINE HCL 1% 5 ML SDV INJ ONE; +MAGNESIUM400 MG PO; +MIDAZOLAM HCL 5 MG/5 ML VIAL IV PRN; +OFIRMEV1000 MG/10 IV; +TIZANIDINE HCL2 M1 PO; +TYLENOL325 MG PO; +fentaNYL citrate 100 MCG/2 ML VIAL IV PRN
[2024-12-10] MEDS ORDERED: SPIRIVA18 MCG INH (11:01)
[2024-12-10] MEDS ORDERED: FLUTICASONE PRO16 GM NAS (11:01)
[2024-12-10 11:02] VITALS: BP 124/81
[2024-12-10] MEDS ORDERED: MIDAZOLAM HCL 5 MG/5 ML VIAL ONE (11:27)
[2024-12-10] MEDS ORDERED: fentaNYL citrate 100 MCG/2 ML VIAL ONE (11:27)
[2024-12-10] MEDS ORDERED: CEFAZOLIN SODIUM 2 GM/20 ML SYR IV SCH (12:00)
[2024-12-10] MEDS ORDERED: CEFAZOLIN SODIUM 2 GM/20 ML SYR ONE (12:01)
--- NOTE | 2024-12-10 12:59 | NUR ---
12/10/[address] PRESENTS TO THE BEDSIDE AND IS SPEAKING WITH THE PATIENT. HER QUESTIONS ARE ANSWERED.
[2024-12-10 13:29] VITALS: BP 114/69
--- NOTE | 2024-12-12 11:32 | OR ---
[facility] [address], [place] [address] Signed DATE OF OPERATION: 12/10/2024 SURGEON: Kemar Okeefe MD PREOPERATIVE DIAGNOSIS: History of sigmoid resection 2019 for diverticular disease, colon screening. POSTOPERATIVE DIAGNOSES: 1. Minimal residual left-sided diverticula. 2. Polyps x3. PROCEDURE: Total colonoscopy to cecum with cold snare polypectomy x1 and cold morcellation polypectomy x2. ANESTHESIA: Intravenous sedation fentanyl 100 mcg, Versed 6 mg. INDICATION: 79-year-old white woman is a patient of Dr. Rosenda Giron. She is known to me from the past having undergone sigmoid resection for diverticular disease in 2019. She is here for a screening colonoscopy. Currently having no symptoms of bleeding, diarrhea or constipation. Understands the risk of colonoscopy including but not limited to bleeding, infection, and perforation. She wished to proceed with screening colonoscopy. FINDINGS: The prep was quite good. Complete colonoscopy was undertaken to the cecum with a full intubation of the cecum. There was a moderately larger sessile polyp of proximal ascending colon which was excised totally with cold snare technique. There were two smaller polyps, one in the left colon, the other in the rectum, both excised with cold morcellation technique. There were few residual diverticula of the left colon. DESCRIPTION OF PROCEDURE: The patient was brought to the endoscopy suite and placed in lateral decubitus position, given intravenous sedation to the point of slurred speech and nystagmus. Digital rectal examination was normal. An Olympus video colonoscope was passed in the rectum and manipulated throughout the jie sigmoid, ultimately intubating the cecum itself. The ileocecal valve and appendiceal orifice were normal. Scope was withdrawn. A small polyp was noted on the undersurface Electronically Signed By: KEMAR OKEEFE MD 12/12/24 1132 PATIENT NAME: SELINA LINTON OPERATIVE REPORT DATE OF : 45 REPORT #: [id number] PHYSICIAN: KEMAR OKEEFE MD PCP: ROSENDA GIRON MD REPORT IS CONFIDENTIAL AND NOT TO BE RELEASED WITHOUT AUTHORIZATION [facility] [address], [place] [address] Signed of the first valve beyond the cecum which was sessile in appearance. This was excised with cold snare technique. The specimen was passed for Pathology measured approximately 8 mm. The scope was then withdrawn and examination showed no sign of abnormality into the proximal left colon. A small polyp was noted, this was excised with cold morcellation technique. Further withdrawal showed a few scattered diverticula and in the rectum, the upper most portion was a small sessile polyp excised with cold morcellation technique as well. Retroflexed view was normal. Scope was removed. The patient was taken to the recovery room in good condition. CONCLUDING DIAGNOSIS: Polyps x3, minimal diverticula. PLAN: Recommend repeat colonoscopy in 5 to 7 years and maintain a high-fiber diet. She will return to the ongoing care of Dr. Rosenda Giron. MD SCOTT Beltrán/CELESTINO /[id number] cc: Dr. Rosenda Giron Copies: ~ Electronically Signed By: KEMAR OKEEFE MD 12/12/24 1132 PATIENT NAME: SELINA LINTON OPERATIVE REPORT DATE OF : 45 REPORT #: [id number] PHYSICIAN: KEMAR OKEEFE MD PCP: ROSENDA GIRON MD REPORT IS CONFIDENTIAL AND NOT TO BE RELEASED WITHOUT AUTHORIZATION
[2024-12-16] MEDS ORDERED: FENOFIBRIC ACI135 MG PO (09:12)
--- NOTE | 2024-12-16 17:28 | PATH ---
[facility] [address], [place] [address] Signed SPECIMEN(S): A ASCENDING POLYP SPECIMEN(S): B DESCENDING POLYP SPECIMEN(S): C RECTAL POLYP SPECIMEN SOURCE: A. ASCENDING POLYP B. DESCENDING POLYP C. RECTAL POLYP CLINICAL HISTORY: History of diverticulosis FINAL PATHOLOGIC DIAGNOSIS: A. Ascending colon polyp: - Tubular adenoma. - Negative for high-grade dysplasia or malignancy. B. Descending colon polyp: - Polypoid fragment of benign colonic mucosa. - No colitis or neoplasm identified. C. Rectal polyp: - Sessile serrated adenoma. - No dysplasia or malignancy identified. [facility] MICROSCOPIC EXAMINATION: Histologic sections of all submitted blocks are examined by light microscopy. These findings, together with the gross examination, support the pathologic diagnosis. GROSS DESCRIPTION: A. The specimen, labeled and designated "Jehtro, ascending polyp," is received in formalin and consists of two arriaga soft tissue fragments, ranging from 0.1-0.4 cm. Entirely submitted in (A1). B. The specimen, labeled and designated "Jethro, descending polyp," is received in formalin and consists of two arriaga soft tissue fragments, ranging from 0.2-0.3 cm. Entirely submitted in (B1). C. The specimen, labeled and designated "Jethro, rectal polyp," is received in formalin and consists of six arriaga soft tissue fragments, ranging from 0.1-0.2 cm. Entirely submitted in (C1). VB (under the direct supervision of a pathologist) The Gross Description was prepared using a voice recognition system. The report PATIENT NAME: SELINA LINTON PATHOLOGY DATE OF : 45 REPORT #: [id number] PHYSICIAN: KEITH REICH PCP: ABRIL GIRON MD REPORT IS CONFIDENTIAL AND NOT TO BE RELEASED WITHOUT AUTHORIZATION [facility] [address], [place] [address] Signed was reviewed for accuracy; however, sound-alike word errors, addition and/or deletions may occur. If there is any question about this report, please contact Client Services. ADDITIONAL NOTES: Immunohistochemical and/or in situ hybridization studies if performed in this case included appropriate positive controls that reacted as expected. This test was developed and its performance characteristics determined by [employer]. It has not been cleared or approved by the U.S. Food and Drug Administration. The FDA has determined that such clearance or approval is not necessary. This test is used for clinical purposes. It should not be regarded as investigational or for research. [employer] is certified under the Clinical Laboratory Improvement Amendments of 1988 (CLIA) as qualified to perform high complexity clinical laboratory testing. PERFORMING LABORATORY: Technical component was performed by [employer] [facility], [address] [place] [id number] (CLIA# [id number]). Professional interpretation was performed by [facility], [address] [place] [id number] (CLIA#: [id number]). Diagnostician: Jourdan Flynn MD Pathologist Electronically Signed 12/16/2024 Copies: ~ PATIENT NAME: SELINA LINTON PATHOLOGY DATE OF : 45 REPORT #: [id number] PHYSICIAN: KEITH PATHOLOGY PCP: ABRIL GIRON MD REPORT IS CONFIDENTIAL AND NOT TO BE RELEASED WITHOUT AUTHORIZATION
== END 2024-12-10 13:32 | disposition home or self-care (01) ==
LOC: OPS 10:36 → DS 10:36 → OPS 12:15
PROVIDERS: ATTEND Surgery
PROC: 0DBP8ZZ Excision of Rectum, Via Natural or Artificial Opening Endoscopic (ICD-10-PCS; 2024-12-10)
PROC: 0DBG8ZZ Excision of Left Large Intestine, Via Natural or Artificial Opening Endoscopic (ICD-10-PCS; 2024-12-10)
PROC: 0DBK8ZZ Excision of Ascending Colon, Via Natural or Artificial Opening Endoscopic (ICD-10-PCS; principal; 2024-12-10 12:15)
DX: Z12.11 Encounter for screening for malignant neoplasm of colon (principal); D12.2 Benign neoplasm of ascending colon; D12.8 Benign neoplasm of rectum; K63.5 Polyp of colon; K57.90 Diverticulosis of intestine, part unspecified, without perforation or abscess without bleeding; L72.0 Epidermal cyst; Z88.8 Allergy status to other drugs, medicaments and biological substances; Z79.82 Long term (current) use of aspirin; Z79.899 Other long term (current) drug therapy
CPT/HCPCS: 88305; 99153; G0500; J0690; J2250; J3010; J7121